=== PATIENT | male | born 1995 | race Caucasian/White ===

== ENCOUNTER 2019-04-24 20:00 | Emergency (ER) | payer SELFPAY ==
[~2019-04-24] VITALS: Ht 175.3 cm; Wt 82.0 kg
[2019-04-24 20:01] VITALS: BP 155/102
== END 2019-04-24 23:00 | disposition left against medical advice (07) ==
LOC: ER 20:40
DX: Z53.21 Procedure and treatment not carried out due to patient leaving prior to being seen by health care provider (principal)